=== PATIENT | female | born 1995 | race Hispanic/Latino ===

== ENCOUNTER 2017-05-08 09:12 | Emergency (ER) | payer OTHER, SELFPAY ==
--- NOTE | 2017-05-08 09:49 | CT ---
CT HEAD WITHOUT CONTRAST: Date: 05/08/17 Multiple axial tomograms obtained through the head without IV enhancement. HISTORY: Headache. Comparison made to head CT of 10/01/14. FINDINGS: Ventricles have normal size and position. There is no evidence of intracranial mass or hemorrhage. N o edema or infarct. Sinuses and mastoids are well aerated. IMPRESSION: Unremarkable CT head. POS: [facility]
[2017-05-08] MEDS ORDERED: Acetaminophen 500 MG TAB ONE (10:07)
[2017-05-08] MEDS ORDERED: diphenhydrAMINE HCl 50 MG/ML 1 ML VIAL ONE (10:07)
[2017-05-08] MEDS ORDERED: Metoclopramide HCl 10 MG/2 ML VIAL ONE (10:07)
[2017-05-08] MEDS ORDERED: Ketorolac Tromethamine 30 MG/ML VIAL ONE ×2 (11:13→11:14)
== END 2017-05-08 11:12 | disposition home or self-care (01) ==
LOC: ERS 09:12
DX: O99.89 Other specified diseases and conditions complicating pregnancy, childbirth and the puerperium (principal); R51 Headache; O99.335 Smoking (tobacco) complicating the puerperium; F17.210 Nicotine dependence, cigarettes, uncomplicated
CPT/HCPCS: 70450; 96361; 96374; 96375; J1200; J1885; J2765